=== PATIENT | male | born 1975 | race Two or more races ===

== ENCOUNTER 2020-11-20 11:45 | Inpatient (IN) | payer OTHER ==
[~2020-11-20] VITALS: Ht 185.4 cm; Wt 86.2 kg
[2020-11-29] MEDS ORDERED: XARELTO10 MG PO (06:48)
[2020-11-29] MEDS ORDERED: OXYC1TAB9 PO (06:48)
[2020-11-29] MEDS ORDERED: BACTRIM DS TAB1 EACH PO (06:48)
[2020-11-29] MEDS ORDERED: INTEGRA PLUS C1 EACH PO (06:48)
== END 2020-11-29 13:09 | DRG 470 ==
LOC: O/R 11-27 07:46 → SURH 11-27 10:45 → SURG 11-27 20:55
PROVIDERS: ADMIT Orthopaedic Surgery Sports Medicine; ATTEND Orthopaedic Surgery Sports Medicine
PROC: 0SR903Z Replacement of Right Hip Joint with Ceramic Synthetic Substitute, Open Approach (ICD-10-PCS; principal; 2020-11-27 10:45)
DX: M16.11 Unilateral primary osteoarthritis, right hip (principal); D62 Acute posthemorrhagic anemia; Z20.822 Contact with and (suspected) exposure to COVID-19